=== PATIENT | female | born 1970 | race African-American/Black ===

== ENCOUNTER 2021-06-04 09:47 | Outpatient (REF) | payer MEDICAID, SELFPAY ==
--- NOTE | ~2021-06-04 | XR_ITS ---
EXAMINATION: XR HAND, RIGHT CLINICAL INFORMATION: Pain COMPARISON: None TECHNIQUE: PA, lateral, and oblique views of the right hand. FINDINGS: Bone alignment is normal. No fracture or dislocation is seen. The joint spaces are normal. There is soft tissue swelling adjacent to the radial side of the DIP joint of the fifth finger. XR/XR hand RT min 3V IMPRESSION: Soft tissue swelling adjacent to the radial side of the DIP joint of the fifth finger.
== END 2021-06-04 09:48 | disposition home or self-care (01) ==
LOC: HO.HOSX 09:47
PROVIDERS: PCP Internal Medicine; Visit Provider Orthopaedic Surgery
DX: M79.641 Pain in right hand (principal); M79.89 Other specified soft tissue disorders
CPT/HCPCS: 73130; 99202

== ENCOUNTER 2021-06-04 10:55 | Outpatient (REF) | payer MEDICAID, SELFPAY ==
[2021-06-04 12:33] LABS: Alanine Aminotransferase 19 U/L (0-31); Albumin Level 4.4 g/dL (3.5-5.0); Alkaline Phosphatase 66 U/L (39-117); Anion Gap 10 (12-20); Aspartate Amino Transferase 20 U/L (5-31); Bilirubin Total 0.6 mg/dL (0.0-1.0); Blood Urea Nitrogen 10 mg/dL (9-16); Calcium 9.7 mg/dL (8.4-10.2); Carbon Dioxide 26 mmol/L (22-29); Chloride 107 mmol/L (96-108); Cholesterol 206 mg/dL; Estimated Glomerular Filt Rate > 60; Glucose Random 90 mg/dL (60-115); HDL Cholesterol 66 mg/dL; LDL Cholesterol Calculated 128 mg/dl; Potassium 3.8 mmol/L (3.3-5.1); Sodium 139 mmol/L (135-145); Total Protein 7.3 g/dL (6.5-8.0); Triglycerides 61 mg/dL
[2021-06-04 12:56] LABS: Thyroid Stimulating Hormone 1.04 uIU/mL (0.32-4.0)
[2021-06-04 13:03] LABS: Creatinine Urine 48.41 mg/dL; Total Protein Urine Random < 7 mg/dL (<12)
== END 2021-06-04 10:56 | disposition home or self-care (01) ==
LOC: HO.LAB 10:55
PROVIDERS: PCP Internal Medicine; Visit Provider Internal Medicine
DX: Z00.01 Encounter for general adult medical examination with abnormal findings (principal); F31.81 Bipolar II disorder; I10 Essential (primary) hypertension; R22.31 Localized swelling, mass and lump, right upper limb
CPT/HCPCS: 36415; 80053; 80061; 84156; 84443

== ENCOUNTER 2021-06-24 06:48 | Day surgery (SDC) | payer MEDICAID, SELFPAY ==
[2021-06-18 14:45] VITALS: BMI 26.9
--- NOTE | 2021-06-23 10:33 | HO.ANESPROP2 ---
Documented by User: Maru Cooper NP 06/23/21 10:34 HPI - Anesthesia Eval Consult details Narrative: 51yo F for Upper Endoscopy and Colonoscopy PMFSH Active Problems Active Problems: All Active Problems (Updated 06/18/21 @ 14:44 by Tiffanie Perrin RN) Mass of soft tissue of right upper extremity (Acute) Past Medical History Medical History Anemia Anxiety Depressed Heartburn High blood pressure Hx of migraine headaches Surgical History Surgical History (Updated 06/24/21 @ 08:53 by Sophia Mckee MD) H/O dilation and curettage H/O wisdom tooth extraction Social History Social History Patient Tobacco Use Status: Current everyday Tobacco user Tobacco use type: Cigarette Cigarettes Per Day: 6 Use of substances other than those prescribed or required for medical reasons: No Are you DNR?: No Advance Directives: No Advance Directives Information Provided: Yes Recently lost weight without trying: No Nutrition Risks: No Nutritional Risk Current occupational status: unemployed Current occupation: rt hand Meds Allergies Allergy/AdvReac Type Severity Reaction Status Date / Time No Known Allergies Allergy Verified 06/04/21 09:55 Home Medications Medication Instructions Recorded Confirmed Last Taken Type amitriptyline 25 mg tablet 25 mg PO BEDTIME 06/04/21 06/18/21 Unknown History amlodipine 10 mg tablet 10 mg PO DAILY 06/04/21 06/18/21 06/24/21 History lisinopril 20 2 tab PO DAILY 06/04/21 06/24/21 06/24/21 History mg-hydrochlorothiazide 25 mg tablet naproxen sodium 550 mg tablet 550 mg PO BID PRN 06/04/21 06/18/21 Unknown History quetiapine 100 mg tablet 100 mg PO BEDTIME 06/04/21 06/18/21 Unknown History topiramate 50 mg tablet 50 mg PO BID 06/04/21 06/18/21 Unknown History Exam Exam Date and Time: June 23, 2021 1033 Height,Weight and Vital Signs: Height 5 ft Weight 62.596 kg Pertinent Lab Results Pertinent Lab Results: Laboratory Tests 06/04/21 11:07 Sodium 139 Potassium 3.8 Chloride 107 Carbon Dioxide 26 BUN 10 Creatinine 0.66 Assessment and Plan Assessment Anesthesia Assessment: Chart Reviewed Documented by User: Sophia Mckee MD 06/24/21 08:56 PMFSH Active Problems Active Problems: All Active Problems (Updated 06/18/21 @ 14:44 by Tiffanie Perrin RN) Mass of soft tissue of right upper extremity (Acute) Smoker.Last cigarette this morning BP diastolic high Past Medical History Medical History Anemia Anxiety Depressed Heartburn High blood pressure Hx of migraine headaches Family History Family history of problems with anesthesia: No Surgical History Surgical History (Updated 06/24/21 @ 08:53 by Sophia Mckee MD) H/O dilation and curettage H/O wisdom tooth extraction History of Problems with Anesthesia: No Social History Social History Patient Tobacco Use Status: Current everyday Tobacco user Tobacco use type: Cigarette Cigarettes Per Day: 6 Use of substances other than those prescribed or required for medical reasons: No Are you DNR?: No Advance Directives: No Advance Directives Information Provided: Yes Recently lost weight without trying: No Nutrition Risks: No Nutritional Risk Current occupational status: unemployed Current occupation: rt hand Meds Allergies Allergy/AdvReac Type Severity Reaction Status Date / Time No Known Allergies Allergy Verified 06/04/21 09:55 Home Medications Medication Instructions Recorded Confirmed Last Taken Type amitriptyline 25 mg tablet 25 mg PO BEDTIME 06/04/21 06/18/21 Unknown History amlodipine 10 mg tablet 10 mg PO DAILY 06/04/21 06/18/21 06/24/21 History lisinopril 20 2 tab PO DAILY 06/04/21 06/24/21 06/24/21 History mg-hydrochlorothiazide 25 mg tablet naproxen sodium 550 mg tablet 550 mg PO BID PRN 06/04/21 06/18/21 Unknown History quetiapine 100 mg tablet 100 mg PO BEDTIME 06/04/21 06/18/21 Unknown History topiramate 50 mg tablet 50 mg PO BID 06/04/21 06/18/21 Unknown History Exam Height,Weight and Vital Signs: Height 5 ft Weight 62.596 kg Vital Signs Temp Pulse Resp BP Pulse Ox 06/24/21 08:08 62 16 153/83 H 06/24/21 07:40 61 16 182/101 H 06/24/21 07:23 61 16 167/108 H 06/24/21 07:20 65 16 167/100 H 06/24/21 07:08 97.4 F 72 16 171/115 H 98 Airway Mallampati Class: III TM Dist: >3cm Neck ROM: Full Loose/Missing/Broken Teeth: Yes (Extraction ) Heart: RRR Lungs: CTAB Assessment and Plan Assessment Anesthesia Assessment: Anesthesia Plan Discussed Final Anesthetic Review Family History of Problems with Anesthesia: No History of Problems with Anesthesia: No NPO: Yes ASA Class: III Final Preanesthetic Review: No Changes in Pt Med Stat, Meds/Allgs Chart Reviewed, Consent Obtained/Reviewed and Anes Risks/Benef Reviewed Patient Risk: Intermediate Procedure Risk: Low Assessment/Block/Sedation in SS: Assess/Block/Sedation-SS Anesthetic Plan Anesthetic Plan: MAC: Disposition: Standard PACU
[2021-06-24] VITALS (7 sets, daily range): BP systolic 133–182; BP diastolic 83–115; PULSE 61–79; RESP 16–19; TEMP 36.3–36.7; O2SAT 98–100; BMI 26.5
[2021-06-24] MEDS: Lactated Ringers 1,000 ML 100 ML IVCONT (07:21)
--- NOTE | 2021-06-24 07:32 | PC.NURSE ---
PATIENT STATES HER BLOOD PRESSURE HAS BEEN GOING UP AND HER MD UPPED HER BP MED TO TWO TABLETS DAILY LISINOPRIL/HCTZ WITHIN THE LAST COUPLE MONTHS. DENIES ANY SYMPTOMS.
--- NOTE | 2021-06-24 07:52 | PC.NURSE ---
MD RESENDIZ AWARE OF PATIENTS ASYMPTOMATIC HTN.
--- NOTE | 2021-06-24 08:13 | MHC.SHP ---
Pre-Procedural Eval Section A Date of Service: 06/24/21 Section B Chief Complaint: anemia,reflux disease Details of Present Illness: SEe H&P no changes Relevant Family History (Specify if Yes): No Relevant Social History: None Present Medications: see Short Stay Collaborative assessment Medical History: No relevant PMH History of Previous Operations: No relevant previous surgery Allergies: Allergies Allergy/AdvReac Type Severity Reaction Status Date / Time No Known Allergies Allergy Verified 06/04/21 09:55 Review of Systems Sugical H&P ROS: Negative: Constitution, Cardiovascular, Respiratory, Neurological, Psychiatric, Hem-Onc, Allergic/Immunologic, Gastrointestinal, Genitourinary, Musculoskeletal, Integumentary, Endocrine and Eyes/Ears/Nose/Throat Exam Surgical H&P Exam: Normal: HEENT, Normal: Heart, Normal: Lungs, Normal: Extremities, Normal: Abdomen, Normal: Skin and Normal: Neurological Plan Diagnosis/Plan: Unchanged I have reviewed the history and physical and performed a pertinent physical examination on my patient. No changes have occurred unless specified.
--- NOTE | 2021-06-24 09:03 | P.BOP_ITS ---
Brief Operative Note Date of Service: 06/24/21 Pre-op diagnosis: tiera,gerd,screening Post-op diagnosis: same (erosive gastriits, colon polyp) Procedure: egd, colon Surgeon: Shaun Nguyen Anesthesia: MAC Was an Match Maker used for this Procedure?: No Estimated blood loss (mL): 5 Pathology: other (see req) Condition: stable Disposition: PACU
--- NOTE | 2021-06-24 10:59 | OP_ITS ---
SURGEON: Shanu Nguyen MD INDICATIONS: 1. Iron deficiency anemia. 2. Gastroesophageal reflux disease. 3. Colon cancer screening. PREOPERATIVE DIAGNOSIS: POSTOPERATIVE DIAGNOSIS: PROCEDURE PERFORMED: 1. Upper endoscopy with biopsy. 2. Colonoscopy to the terminal ileum with biopsy. ESTIMATED BLOOD LOSS: COMPLICATIONS: ANESTHESIA: ASSISTANTS: SPECIMENS: MEDICATIONS: Monitored anesthesia care. DESCRIPTION OF PROCEDURE: History and physical were performed. The risks and benefits of the procedure were explained to the patient. Informed consent was obtained. The patient was placed in the left lateral decubitus position. A digital rectal exam was performed prior to the colonoscopy. The Olympus video gastroscope was introduced into the esophagus, stomach, and duodenum. Examination was performed. The scope was removed. She was repositioned for colonoscopy. Digital rectal exam was performed and was found to be normal. The Olympus pediatric video colonoscope was introduced into the rectum and advanced to the cecum without difficulty. The cecum was identified by transillumination, palpation, and identification of ileocecal valve. Examination was performed. The scope was removed. She tolerated both procedures well and was returned to recovery area in stable condition. FINDINGS: UPPER ENDOSCOPY: Esophagus: The esophagus was normal. There was a slight irregularity to the EG junction and biopsies were obtained. Stomach: The stomach showed no evidence of masses or polyps. There was a single antral erosion measuring approximately 10 mm, which was biopsied. Duodenum: The bulb and second portion were normal. Random duodenal biopsies were obtained. COLONOSCOPY: The terminal ileum was examined and appeared normal. The visualized colonic mucosa was within normal limits without evidence of masses or ulcers. In the rectum at about 20 cm was a less than 5 mm polyp, which was removed with biopsy forceps. The quality of prep was good. Retroflexed examination showed some small internal hemorrhoids. IMPRESSION: 1. Erosive gastritis. 2. Colon polyp. RECOMMENDATION: Follow up the biopsy results. MD LAUREN Brantley/ADAL / [id number]
== END 2021-06-24 09:49 | disposition home or self-care (01) ==
PROVIDERS: PCP Internal Medicine; Visit Provider Internal Medicine Gastroenterology
PROC: (CPT 45380; principal; 2021-06-24 08:10)
DX: Z12.11 Encounter for screening for malignant neoplasm of colon (principal); K63.5 Polyp of colon; D50.9 Iron deficiency anemia, unspecified; K21.9 Gastro-esophageal reflux disease without esophagitis; K29.50 Unspecified chronic gastritis without bleeding; B96.81 Helicobacter pylori [H. pylori] as the cause of diseases classified elsewhere; I10 Essential (primary) hypertension; G43.909 Migraine, unspecified, not intractable, without status migrainosus; F41.8 Other specified anxiety disorders; Z79.899 Other long term (current) drug therapy; F17.210 Nicotine dependence, cigarettes, uncomplicated
CPT/HCPCS: 45380; 43239; 88305; 88342

== ENCOUNTER 2024-04-19 09:52 | Outpatient (AMB) | payer MEDICAID, SELFPAY ==
--- NOTE | 2024-04-19 09:58 | MHC.OFFVIS ---
Vital Signs 04/19/24 10:07 Height 5 ft 0.05 in Weight 135 lb BMI 26.3 Intake Visit Reasons: OV-Right small finger soft tissue mass Intake Note: Mindy 54 yr old - hand dominant female presents today for a follow up visit for her Right small finger soft tissue mass. Patient was last seen with Dr Middleton on 06/04/2021 where she was going to be schedule to have mass removed however states she never received a call back to schedule surgery. Currently states her mass has increased in size and would like to have it surgically removed. Denies CTS or any locking of finger. Allergies No Known Allergies Allergy (Verified 04/19/24 10:06) HPI HPI OV-Right small finger soft tissue mass: Details: Mindy is a 54 year old right hand dominant woman who is currently not working, returning to discuss her right small finger mass. This has been present for ~4 years now, and has increased in size. She denies any pain She is unemployed and stays at home. She says she was supposed to have this removed surgically in 2021, but never received a call to schedule her surgery. She would like to have this removed. [facility] Medical History (Updated 04/19/24 @ 10:20 by Fidel Bains) Heartburn Anemia Anxiety Depressed Hx of migraine headaches High blood pressure Surgical History H/O wisdom tooth extraction H/O dilation and curettage Social History Patient Tobacco Use Status: Current everyday Tobacco user Tobacco use type: Cigarette Cigarettes Per Day: 6 Current occupational status: unemployed Current occupation: rt hand Review of Systems Const All systems reviewed & are unremarkable except as noted in HPI and below Physical Exam Vital Signs: BMI result Body Mass Index 26.3 Const General: no acute distress and alert Orientation/consciousness: patient oriented x3 Neuro General: patient oriented x3 Extrem Other: Evaluation of right Upper Extremity: The patient was alert oriented and in no acute distress Neuro: Median, Ulnar, Radial nerves motor and sensory intact Vascular: Cap refill brisk ROM: She can make a fist and extend all her digits No locking or catching She has two masses on her small finger. One on the volar radial side, which is multi-lobular & measuring ~1cm diameter, dorsally it extends to the extensor tendon at the distal phalanx level The second is on the volar ulnar side, just proximal to the DIP flexion crease They may be contiguous. It is soft and not tender. Full range of motion of the digit. Psych Appearance: grossly normal Affect: normal affect Attitude: cooperative Assessment & Plan Assessment & Plan (1) Mass of soft tissue of right upper extremity: Comment: SF Code(s): M79.89 - Other specified soft tissue disorders Category: Medical Plan Assessment & Plan: 1. Right small finger, soft tissue masses Volar radial side, multi-lobular, measuring ~1cm diameter, dorsally it extends to the extensor tendon at the distal phalanx level Volar ulnar side, just proximal to the DIP flexion crease I educated her about this condition I discussed operative and non-operative treatment options The patient would like to proceed with surgery The risks and benefits of operative treatment were discussed with the patient and the patient wishes to proceed with surgery. These risks include, but are not limited to risk of damage to blood vessels, nerves, tendons, infection, recurrence, incomplete relief of preoperative symptoms, persistent pain, possible need for further surgery and the risks associated with regional blocks and anesthesia. The plan is to take the patient to the operating room sometime in the next few weeks for the following procedures: 1. Right small finger soft tissue mass excision, under general All of the preoperative paperwork including the consent was reviewed today. All the patient's questions were answered. The patient understands that they will be contacted by our scheduler soon to schedule this procedure She denies Diabetes, blood thinners, heart, lung, kidney issues She has asthma, and says this is well-controlled Scribed for Shayy Middleton MD by Fidel Bains medical language specialist, on 04/19/24 at 10:15 AM, EST. Coding Level of Care Code Est Pt Level 4 (30288) Diagnoses Mass of soft tissue of right upper extremity M79.89
[2024-04-19 10:07] VITALS: BMI 26.3
--- OUTSIDE RECORDS SUMMARY | 2024-04-19 11:42 | XMS_ITS | Encounter Summary ---
Author Organization [facility] Address [address] [place] [phone] Phone Care Team Providers Care Painter Ski Edge Name Role Phone Tara Narvaez MD Primary Care Provider [phone] Encounter Details Date Type Department Care Team (Late st Contact Info) Description 03/23/2024 10:40 AM EST Office Visit [facility] [address] [address] Simon White MD [facility] [address] [address] Hypertension (Primary Dx); 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 Social History Tobacco Use Types Packs/Day Years Used Date Smoking Tobacco: Every Day Cigarettes Smokeless Tobacco: Never Alcohol Use Standard Drinks/Week Comments Never 0 (1 standard drink = 0.6 oz pur e alcohol) Comments Unknown Sex and Gender Information Value Date Recorded Sex Assigned at Not on file Legal Sex Female 9:56 AM EDT Gender Identity Not on file Sexual Orientation Not on file documented as of this encounter Last Filed Vital Signs Vital Sign Reading Time Taken Comments Blood Pressure 212/133 03/23/2024 10:41 AM EST Pulse 100 03/23/2024 10:41 AM EST Temperature - - Respiratory Rate - - Oxygen Saturation 98% 03/23/2024 10:41 AM EST Inhaled Oxygen Concentration - - Weight 68.6 kg (151 lb 3.2 oz) 03/23/2024 10:41 AM EST Height 152.4 cm (5') 03/23/2024 10:41 AM EST Body Mass Index 29.53 03/23/2024 10:41 AM EST documented in this encounter Patient Instructions * Patient Instructions* Simon White MD - 03/23/2024 10:40 AM EST You have Hypertension which is also called High Blood Pressure. One of the biggest things that you can do to live a longer healthier life and prevent cardiovascular disease, blindness, stoke and further damage to your kidneys is to control your blood pressure. If you are serious about controlling your blood pressure, then you should have a home machine. Thisshould be a digital machine with the correctly sized cuff that goes on your upper arm. Wrist machines are not as accurate. Bringing your machine into the doctors office at least once a year to have it checked is also a good idea. When your provider gives you a target blood pressure to aim for, they are referring to your AVERAGEBLOOD PRESSURE OVER TIME. This means that isolated readings are not as important as the trends and the zone where your BP runs most of the time. You should be recording your readings and bringing them in to every provider visit for review. If you do not know how to do an average, your provider will do it for you. This also means that you should not rely on a few readings a year at the doctors office. Two readings a year at the doctors office is not nearly as good of a test as a once a week reading for a year would be. Medications are vital for good blood pressure control and many medications can affect your blood pressure. Even herbs and over the counter pills. You should know any and all medications that you takeand have a meticulously kept list of medications with your at every provider encounter. Discuss your medication list, written BP records and BP targets with your provider at every office visit. Many other things in the environment can affect your blood pressure. To help you more effectively manage your high blood pressure, we would like to remind you of the following preventive measures you can take at home: 1) Eat right: Your diet should be rich in fruits, vegetables, potassium, and low-fat dairy products. You should also reduce your intake of fats, particularly saturated fats like fried foods, butter and oils. Sweets, and starches should also be limited. The best diets to follow would be a DASH diet and/or a Mediterranean diet. You can learn more about these at the following websites. DASH DIET: https://www.nhlbi.nih.gov/health-topics/qzuo-xcjtlc-utqu Https://dashdiet.org MEDITERRANEAN DIET: https://www.mayoinic.org/healthy-lifestyle/wypqfcnwv-eve-wjvanei-eating/in-dep th/mediterranean-diet/art-04914222 https://www.[employer].com/diet/a-z/yvv-bompdcriaouan-ybkh 2) Keep your sodium intake down: In addition to eating the right foods, you should try to keep yoursodium intake down. Excessive sodium (salt) intake leads directly to elevated Blood Pressure and insome cases swelling of the ankles. 2000 mg of sodium or less per day is the recommended target. Thesalt shaker is only 1/3 or the lobo. There is sodium in many foods. Especially preserved, processed, canned or packaged foods. You should read the labels to find out how much sodium you are ingesting. Eating fresh whole foods like the DASH diet helps to keep your salt intake down as well. 3) Maintain a healthy weight: Try to achieve and maintain a healthy weight. For every 10 lbs of weight that you loose, your BP usually goes down about 5-7mmgh. In addition to that, being overweight increases your cardiovascular risk and is associated with sleep apnea and other health problems. If you are unable to loose or maintain your weight, consider working with a ad operations intern, a licensed physical therapist or a bariatric weight clinic. 4) Exercise: Try to get at least 30 minutes of aerobic exercise every day. 60 minutes would be evenbetter. Formal programs help to motivate you. Consider joining an exercise class 5) Moderate your alcohol consumption: Alcohol makes it very difficult for our bodies to loose weight and it would be best if you abstained. However if you choose to drink, limit your alcohol intake to one drink per day. (I.e. one 4 oz glass of wine) 6) Moderate your caffeine intake: 1-2 eight ounce cups of regular coffee or its caffeinated equivalent per day is probably good for our hearts. However in doses more that that, the caffeine will raise your heart rate and blood pressure. Stay away form monster drinks, 5 hour energy, double espressos, etc 7) Be careful what medications you take: Many over the counter medications and herbs and supplements can raise your blood pressure. The most common are ibuprofen and decongestants. Many herbs can raise your blood pressure. Performance enhancing exercise supplements and weight loss supplements are no torious for containing substances that raise your blood pressure. Some [place]ine[place] teas and licorice candies can raise your blood pressure. In general you do not need supplements but if you choose to take them, know what you are using and get them form a reputable source. 8. Do not smoke, chew tobacco or vape: These can all raise your blood pressure and also increase the damage to your heart and blood vessels. Did you know that smoking can cause worsening kidney function? 9. Control stress and anxiety: Stress and anxiety can increase your blood pressure but they are difficult to measure. Exercise, hobbies, fun personal outlets, support groups, someone to talk to, yogaand relaxation techniques like deep breathing are all good ways to fight stress. If you are struggling with stress, consider talking with a formal therapist and discuss with your provider whether anti anxiety medications would be right for you. documented in this encounter Progress Notes * Simon White MD - 03/23/2024 10:40 AM EST [facility] Office Visit Patient Name: Mindy Emery, Female Date of : 1970, 54 y.o. Date: 03/23/2024 History of Present Illness Mindy Emery is a 54 y.o. female who is referred here for HTN----again.. She was seen in 2021 and never followed through on the recommendations. Is now referred back 3 years later for htn. Here was the 2021 HPI: She is seen with her sister who also has htn and also has a white coat effect. They both seem anxious. She tells me she has had htn for 7 years and was on one med . She could not tell me which one. IN 11/2020 she was seen in the ER at [facility] for leg pains and had a bp 220/114. She had follow up and over the last year her she is now on 3 meds noteably amlodipine , lisinopril and hctz. She has also had topamnax started the last year for chronic migraine headaches. She does not monitor bp at home but thinks it is better there / In the pcp nick she has had persistent bp readings 135-160/90-100. The MA intake today was 140/100. She claims adherence to meds today. When I took it a few minutes later she was 190/130 in both arms and visibly anxious. She denies cp, sob, long, palpitations, dizzyness n,t,p,w or other vascular sxs. She has good pulses in her feet. No edema and looks somewhatdry. Since then it appears she did not follow up with pcp either. In 02/2024 she saw PC who noted that she had ran out of all meds and had not been seen in 2 years. Comes in today with poor insight, no medlist and questionable adherence. No physical complains. Multiple computer flags indicate many of the bp rx'd have A completed history and physical was performed. The new patient packet from the referring provider was reviewed with the patient. Available medication list and home monitoring data were reviewed. Any available data, labs and images were reviewed. The [facility]'s electronic records were opened and reviewed for more background information. The 12 point review of symptoms was pertinently negative for fevers, weight loss, flank pain, hemoptysis, chest pain, hematuria, hematochezia, rash, synovitis and all other systems reviewed were negative The following portions of the patient's chart were reviewed in this encounter and updated as appropriate: Tobacco Allergies Meds Problems Med Hx Surg Hx Fam Hx Past Medical History Past Medical History: Diagnosis Date Anemia Asthma Depressive disorder Hypertension Migraine Past Surgical History Past Surgical History: Procedure Laterality Date CYST REMOVAL vulvar cyst removal 06/2016 TUBAL LIGATION Family History Family History Problem Relation Age of Onset Hypertension Mother Migraines Mother Heart disease Father Hyperlipidemia Father Social History Social History Tobacco Use Smoking status: Every Day Current packs/day: 0.50 Types: Cigarettes Smokeless tobacco: Never Substance Use Topics Alcohol use: Never Medication List Current Outpatient Medications Medication Sig Dispense Refill amLODIPine (NORVASC) 10 MG tablet Take 1 tablet by mouth 1 (one) time each day lisinopril-hydroCHLOROthiazide (PRINZIDE,ZESTORETIC) 20-25 MG per tablet Take 1 tablet by mouth 1 (one) time each day QUEtiapine (SEROquel) 50 MG tablet Take 1 tablet by mouth at bed time sertraline (ZOLOFT) 50 MG tablet Take 50 mg by mouth 1 (one) time each day No current facility-administered medications for this visit. Allergy List Allergies Allergen Reactions Wellbutrin [Bupropion] Physical Exam BP (!) 212/133 (BP Location: Left upper arm, Patient Position: Sitting) Pulse 100 Ht 5' (1.524 m) Wt 151 lb 3.2 oz (68.6 kg) SpO2 98% BMI 29.53 kg/m?? Last 3 office BP readings: BP Readings from Last 3 Encounters: 03/23/24 (!) 212/133 02/10/22 140/100 BP in both arms symmetrically with good leg pulses and no vascular findings General: Well developed well nourished in no acute distress Neuro: alert interactive without delirium Eyes: anicteric ENT: moist membranes, no stridor Cardiovascular: regular rate and rhythm, no rub Pulmonary: no distress or tachypnea Abdomen: soft and nondistended Genitourinary: no suprapubic tenderness or bladder distension to palpation Musculoskeletal: No bony tenderness or deviation Dermatologic: No visible rash on exposed skin Hematologic: no petechiae or ecchymoses on exposed skin Extremities: edema is none. Looks dry Labs No lab exists for component: LABALBU No lab exists for component: PTHINTACT No lab exists for component: IRON SATURATION No lab exists for component: CYCLOSPORITR Renal panel and lytes 11/2020 [facility] er were normal Assessment & Plan 1. Hypertension 2. 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 HYPOVOLEMIA DUE TO DUAL DIURETIC (HCTZ AND TOPAMAX) - TOPOMAX IS OFF NOW CHRONIC MIGRAINES CHART LISTS BIPOLAR DISEASE POOR INSIGHT AND POORLY KEMPT MEDICATION LIST NONADHERENCE - NO SHOWED FOR 2-3 YEARS WITH ME AND PCP AND NO MEDS FOR EXTENDED PERIODS SUGGESTIONS/PLAN: -clearly adherence would be the most helpful thing -will see if I can find out who her psychiatrist is and perhaps meds need to be adjusted to help compliance -24 hr bpm will be reordered but will not be helpful right now as she is initiating 3 drug antitn therapy just 48 hours ago -will set up follow up in 6-12 weeks for bp reeval -will draw some basic secondary HTN labs -after next visit will set up 24 hr bpm -htn handouts and education provided today Orders Placed This Encounter Renal Function Panel PTH, Intact CBC and Differential Uric Acid Urine Albumin / Creatinine Ratio Renin Activity Aldosterone Metanephrines,Frac., Pl. Free Cortisol TSH w/reflex to FT4 Return in about 3 months (around 06/21/2024) for OV with labs 1-2 weeks prior to visit. Simon White MD documented in this encounter Plan of Treatment Upcoming Encounters Date Type Department Care Team (Late st Contact Info) Description 05/17/2024 10:40 AM EDT Office Visit [facility] [address] [address] Simon White MD [address] [address] Scheduled Orders Name Type Priority Associated Diagnoses Orde r Schedule Renal Function Panel Lab Routine Hypertension 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 Expected: 03/23/2024, Expires: 04/21/2025 PTH, Intact Lab Routine Hypertension 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 Expected: 03/23/2024, Expires: 04/21/2025 CBC and Differential Lab Routine Hypertension 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 Expected: 03/23/2024, Expires: 04/21/2025 Uric Acid Lab Routine Hypertension 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 Expected: 03/23/2024, Expires: 04/21/2025 Urine Albumin / Creatinine Ratio Lab Routine Hypertension 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 Expected: 03/23/2024, Expires: 04/21/2025 Renin Activity Lab Routine Hypertension 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 Expected: 03/23/2024, Expires: 04/21/2025 Aldosterone Lab Routine Hypertension 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 Expected: 03/23/2024, Expires: 04/21/2025 Metanephrines,Frac., Pl. 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
--- OUTSIDE RECORDS SUMMARY | 2024-04-19 11:42 | XMS_ITS | Clinical Summary ---
Author Organization [facility] Address [address] [address] Phone Care Team Providers Care Radio Adjuster Name Role Phone Tara Narvaez MD Primary Care Provider [phone] Allergies Active Allergy Reactions Criticality Noted Date Comments Bupropion 02/09/2022 Medications amLODIPine (NORVASC) 10 MG tablet Take 1 tablet by mouth 1 (one) time each day Active QUEtiapine (SEROquel) 50 MG tablet Take 1 tablet by mouth at bed time Active lisinopril-hydro CHLOROthiazide (PRINZIDE,ZESTOR ETIC) 20-25 MG per tablet Take 1 tablet by mouth 1 (one) time each day Active sertraline (ZOLOFT) 50 MG tablet Take 50 mg by mouth 1 (one) time each day Active amitriptyline (ELAVIL) 25 MG tablet Take 1 tablet by mouth at bed time 03/23/19 25 Discontinu ed(Med List Maintenanc e) Topiramate ER 50 MG capsule sustained-releas e 24 hr Take 1 tablet by mouth 2 (two) times a day 03/23/19 25 Discontinu ed(Med List Maintenanc e) Omeprazole 20 MG Tablet Delayed Release Dispersible Take 20 mg by mouth 1 (one) time each day 2 03/23/19 25 Discontinu ed(Med List Maintenanc e) metoprolol succinate XL (Toprol XL) 25 MG 24 hr tablet Take 1 tablet (25 mg total) by mouth 1 (one) time each day Do not crush or chew. 30 tablet 11 2 03/23/19 25 Discontinu ed(Med List Maintenanc e) lisinopril (PRINIVIL,ZESTRI L) 30 MG tablet Take 1 tablet (30 mg total) by mouth 1 (one) time each day 30 tablet 11 2 03/23/19 25 Discontinu ed(Med List Maintenanc e) Active Problems Problem Noted Date Diagnosed Date Labile hypertension due to being in a clinical e nvironment 04/28/2022 Hypertension 02/10/2022 Encounters Date Type Department Care Team Description 03/23/2024 10:40 AM EST [facility] [address] [address] Simon White MD Hypertension (Primary Dx); 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 from Last 3 Months Family History Medical History Relation Comments Heart disease Father Hyperlipidemia Father Hypertension Mother Migraines Mother Relation Status Comments Father Mother Social History Tobacco Use Types Packs/Day Years Used Date Smoking Tobacco: Every Day Cigarettes Smokeless Tobacco: Never Tobacco Cessation:Ready to Q uit: Not Asked; Counseling Given: Not Answered Alcohol Use Standard Drinks/Week Comments Never 0 (1 standard drink = 0.6 oz pur e alcohol) Comments Unknown Sex and Gender Information Value Date Recorded Sex Assigned at Not on file Legal Sex Female 9:56 AM EDT Gender Identity Not on file Sexual Orientation Not on file Last Filed Vital Signs Vital Sign Reading [...] Mass Index 29.53 03/23/2024 10:41 AM EST Plan of Treatment Upcoming Encounters Date Type Department Care Team (Late st Contact Info) Description 05/17/2024 10:40 AM EDT [facility] [address] [phone] Simon White MD [address] [address] Health Maintenance Due Date Last Done Comments Breast Cancer Screening 1970 Pneumococcal Vaccine: Pediat rics (0 to 5 Years) and At-Risk Patients (6 to 64 Years) (1 of 2 - PCV) 02/29/1976 Hepatitis B Vaccine (1 of 3 - 19+ 3-dose series) 02/28 Colorectal Cancer Screening: Annual FOBT 2019 Colorectal Cancer Screening: Colonoscopy 2019 Colorectal Cancer Screening: Sigmoidoscopy 2019 Influenza Vaccine (#1) 2023 Insurance [place] Care Teams Radio Adjuster Relationship Specialty Start Date End Date Tara Narvaez MD [address] [place] [address] PCP - General Internal Medicine 11/13/21
== END 2024-04-19 10:24 | disposition home or self-care (01) ==
PROVIDERS: PCP Internal Medicine; Visit Provider Orthopaedic Surgery
DX: M79.89 Other specified soft tissue disorders (principal)
CPT/HCPCS: 99214

== ENCOUNTER → 2024-04-19 09:52 | Outpatient (BNVA) | payer MEDICAID, SELFPAY | PROVIDERS: PCP Internal Medicine; Visit Provider Orthopaedic Surgery | DX: M79.89 Other specified soft tissue disorders (principal) | CPT/HCPCS: 99212 ==

== ENCOUNTER 2024-06-28 10:40 | Outpatient (AMB) | payer MEDICAID, SELFPAY ==
[2024-06-28 11:12] VITALS: BMI 26.3
--- NOTE | 2024-06-28 11:12 | MHC.OFFVIS ---
Vital Signs 06/28/24 11:12 Height 5 ft 0.05 in Weight 135 lb BMI 26.3 Intake Visit Reasons: Pre-Rt SF Soft Tissue Mass Exc 07/03/24 Intake Note: Mindy 54 yr old female presents today for her pre-op visit for her right small finger tissue mass excision scheduled with Dr Middleton on 07/03/24. Consents signed and questions have been answered. Allergies No Known Allergies Allergy (Verified 06/28/24 11:25) HPI HPI Pre-Rt SF Soft Tissue Mass Exc 07/03/24: Details: Mindy is a 54 year old right hand dominant woman who is currently not working, returning to discuss her right small finger masses This has been present for ~4 years now, and has increased in size. She denies any pain She is unemployed and stays at home. [facility] Medical History (Updated 04/19/24 @ 10:20 by Fidel Bains) Heartburn Anemia Anxiety Depressed Hx of migraine headaches High blood pressure Surgical History H/O wisdom tooth extraction H/O dilation and curettage Social History Patient Tobacco Use Status: Current everyday Tobacco user Tobacco use type: Cigarette Cigarettes Per Day: 6 Current occupational status: unemployed Current occupation: rt hand Physical Exam Vital Signs: BMI result Body Mass Index 26.3 Const General: no acute distress and alert Orientation/consciousness: patient oriented x3 Neuro General: patient oriented x3 Extrem Other: Evaluation of right Upper Extremity: The patient was alert oriented and in no acute distress Neuro: Median, Ulnar, Radial nerves motor and sensory intact Vascular: Cap refill brisk ROM: She can make a fist and extend all her digits No locking or catching She has two masses on her small finger. One on the volar radial side, which is multi-lobular & measuring ~1.5cm*~1.5cm, with a height of 5-10mm, dorsally it extends to the extensor tendon at the distal phalanx level. the skin is rather thin over the central aspect of this fairly large mass. The second is on the volar ulnar side, just proximal to the DIP flexion crease, measuring ~5mm in diameter They may be contiguous. It is soft and not tender. Full range of motion of the digit. Psych Appearance: grossly normal Affect: normal affect Attitude: cooperative Assessment & Plan Assessment & Plan (1) Mass of soft tissue of right upper extremity: Comment: Code(s): M79.89 - Other specified soft tissue disorders Category: Medical Plan Assessment & Plan: 1. Right small finger, soft tissue masses Volar radial side, multi-lobular, measuring ~1.5cm*~1.5cm, with a height of 5-10mm, dorsally it extends to the extensor tendon at the distal phalanx level Volar ulnar side, just proximal to the DIP flexion crease, measuring ~5mm in diameter I educated her about this condition I discussed operative and non-operative treatment options The patient would like to proceed with surgery The risks and benefits of operative treatment were discussed with the patient and the patient wishes to proceed with surgery. These risks include, but are not limited to risk of damage to blood vessels, nerves, tendons, infection, recurrence, incomplete relief of preoperative symptoms, persistent pain, possible need for further surgery and the risks associated with regional blocks and anesthesia. The plan is to take the patient to the operating room sometime on 07/03/24 for the following procedures: 1. Right small finger soft tissue mass excision, under general All of the preoperative paperwork including the consent was reviewed today. All the patient's questions were answered. The patient understands that they will be contacted by our assistant professor of surgery soon to schedule this procedure She denies Diabetes, blood thinners, heart, lung, kidney issues She has asthma, and says this is well-controlled Scribed for Shayy Middleton MD by Fidel Bains medical records manager, on 06/28/24 at 11:35 AM, EST. Coding Level of Care Code Est Pt Level 4 (98557) Diagnoses Mass of soft tissue of right upper extremity M79.89
--- OUTSIDE RECORDS SUMMARY | 2024-06-28 11:56 | XMS_ITS | Clinical Summary ---
Author Organization [facility] Address [address] [address] Phone Care Team Providers Care Supervisor [employer] Name Role Phone Tara Narvaez MD Primary Care Provider [phone] Allergies Active Allergy Reactions Criticality Noted Date [...] mouth 1 (one) time each day Active Active Problems Problem Noted Date Diagnosed Date Labile hypertension due to being in a clinical e nvironment 04/28/2022 Hypertension 02/10/2022 Encounters Date Type Department Care Team Description 05/17/2024 Documentation Only [facility] [address] [address] Simon White MD No Show (No show-----again) from Last 3 Months Family History Medical [...] 03/23/2024 10:41 AM EST Plan of Treatment Health Maintenance Due Date Last Done Comments Breast Cancer Screening 1970 Hepatitis B Vaccine (1 of 3 - 19+ 3-dose series) 02/28 Pneumococcal Vaccine: 50+ Years (1 of 2 - PCV) 990 Colorectal Cancer Screening: Annual FOBT 2019 Colorectal Cancer Screening: Colonoscopy 2019 Colorectal Cancer Screening: Sigmoidoscopy 2019 Influenza Vaccine (Season Ended) 2024 Insurance Medicaid [place] Care Teams Supervisor [employer] Relationship Specialty Start Date End Date Tara Narvaez MD [address] [place] [address] PCP - General Internal Medicine 11/13/21
== END 2024-06-28 12:01 | disposition home or self-care (01) ==
LOC: HO.HOS 10:40
PROVIDERS: PCP Internal Medicine; Visit Provider Orthopaedic Surgery
DX: M79.89 Other specified soft tissue disorders (principal)
CPT/HCPCS: 99024

== ENCOUNTER → 2024-06-28 10:40 | Outpatient (BNVA) | payer MEDICAID, SELFPAY | PROVIDERS: PCP Internal Medicine; Visit Provider Orthopaedic Surgery ==

== ENCOUNTER 2024-07-03 06:54 | Day surgery (SDC) | payer MEDICAID, SELFPAY ==
[2024-06-29 14:38] VITALS: BMI 26.4
--- OUTSIDE RECORDS SUMMARY | 2024-06-30 13:36 | XMS_ITS | Clinical Summary ---
Author Organization [facility] Address [address] [address] Phone Care Team Providers Care Web Operations Administrator Name Role Phone Tara Narvaez MD Primary Care Provider [phone] Allergies Active Allergy Reactions Criticality Noted Date [...] Documentation Only [facility] [address] [address] Simon White MD No Show [...] Insurance Medicaid [place] Care Teams Web Operations Administrator Relationship Specialty Start Date End Date Tara Narvaez MD [address] [place] [address] PCP - General Internal Medicine 11/13/21
[2024-07-03] VITALS (8 sets, daily range): BP systolic 98–125; BP diastolic 53–85; PULSE 80–99; RESP 14–18; TEMP 36.2–36.6; O2SAT 92–100; BMI 26.3
[2024-07-03] MEDS: Lactated Ringers 1,000 ML 80 ML IVCONT (07:18)
--- NOTE | 2024-07-03 07:24 | P.CONAN_ITS ---
[facility] Active Problems Active Problems: All Active Problems Mass of soft tissue of right upper extremity (Acute) Past Medical History Medical History Heartburn Anemia Anxiety Depressed Hx of migraine headaches High blood pressure Family History Family history of problems with anesthesia: No Surgical History Surgical History History of esophagogastroduodenoscopy (EGD) (2021) Hx of colonoscopy (2021) H/O wisdom tooth extraction H/O dilation and curettage History of Problems with Anesthesia: No Social History Social History (Reviewed 06/28/24 @ 11:26 by Gladys Gonsalez [facility]) Are you a primary health care recruiter to a significant other at home: No Do you presently have visiting nurse or other home services: No Patient Tobacco Use Status: Current everyday Tobacco user Tobacco use type: Cigarette Cigarettes Per Day: 6 Smoked in Last 30 Days: Yes Patient Interested in Nicotine Replacement: No Substance Use Frequency: Daily Have you been hit, kicked, punched, or otherwise hurt by someone within the past year? If so, by whom?: No Are you DNR?: No Advance Directives: No Advance Directives Information Provided: Yes Poor oral hygiene: No Current occupational status: unemployed Current occupation: rt hand Meds Allergies Allergy/AdvReac Type Severity Reaction Status Date / Time No Known Allergies Allergy Verified 07/03/24 07:10 Active Medications: Current Medications Cefazolin Sodium/Dextrose (Ancef) 2 gm in 50 mls @ 100 mls/hr IV PREOP ONE Stop: 07/03/24 07:25 Lactated Ringer's (Lr) 1,000 mls @ 80 mls/hr IVCONT .[id number] THOMAS Last Admin: 07/03/24 07:18 Dose: 80 mls/hr Home Medications ?Medication ?Instructions ?Recorded ?Confirmed ?Last Taken ?Type amitriptyline 25 mg tablet 25 mg PO BEDTIME 06/04/21 07/03/24 Unknown History amlodipine 10 mg tablet 10 mg PO DAILY 06/04/21 07/03/24 06/24/21 History lisinopril 20 2 tab PO DAILY 06/04/21 07/03/24 07/03/24 History mg-hydrochlorothiazide 25 mg tablet quetiapine 100 mg tablet 100 mg PO BEDTIME 06/04/21 07/03/24 Unknown History topiramate 50 mg tablet 50 mg PO BID 06/04/21 07/03/24 Unknown History Exam Height,Weight and Vital Signs: Height 5 ft Weight 61.008 kg Last Vital Signs Temp 97.9 F 07/03/24 07:16 Pulse 89 07/03/24 07:16 Resp 18 07/03/24 07:16 BP 125/85 07/03/24 07:16 Pulse Ox 100 07/03/24 07:16 O2 Del Method Room Air 07/03/24 07:16 Airway Mallampati Class: III TM Dist: >3cm Neck ROM: Full Heart: rrr Lungs: cta Assessment and Plan Assessment Anesthesia Assessment: Anesthesia Plan Discussed and Chart Reviewed Final Anesthetic Review Family History of Problems with Anesthesia: No History of Problems with Anesthesia: No NPO: Yes ASA Class: II Final Preanesthetic Review: No Changes in Pt Med Stat, Meds/Allgs Chart Reviewed and Consent Obtained/Reviewed Patient Risk: Low Procedure Risk: Low Anesthetic Plan Anesthetic Plan: GA Disposition: Standard PACU
--- NOTE | 2024-07-03 08:53 | MHC.SHP ---
Pre-Procedural Eval Section A - 24 Hr Update-Section A only Date of Service: 07/03/24 The patient is an INPATIENT: No Changes since office visit: No Cold of Flu in the past 2 weeks, No New Medical Problems, No Changes in Medication and No Patient answered all questions The patient has been examined within 24 hours of the surgical procedure. The History & Physical has been completed within 30 days and I have reviewed it.: Yes Section B - Complete if H&P > 30 days Chief Complaint: o rt sf mass Allergies: Allergies Allergy/AdvReac Type Severity Reaction Status Date / Time No Known Allergies Allergy Verified 07/03/24 07:10 Plan I have reviewed the history and physical and performed a pertinent physical examination on my patient. No changes have occurred unless specified. Time Spent With Patient Time: Total time managing care of this patient today ____ minutes.
--- NOTE | 2024-07-03 08:53 | W.PM.OPN ---
Operative Note Operative Note Date of Service: 07/03/24 Narrative: Operative Note Narrative: Preop diagnosis: 1. Right small finger soft tissue mass Postop diagnosis: Same Procedure: 1. Right small finger soft tissue mass excisional biopsy, deep 2. Ulnar nerve block Surgeon: Shayy Middleton MD Early Childhood Education Coordinator: None Anesthesia: General Anesthesia Findings: Banuelos solid multi lobular soft tissue mass Implants: None Tourniquet time: 20 minutes EBL: 5.0 ml Specimen: Right small finger mass sent for histopathology Drains: None Complications: None Disposition: Brought to the recovery room in stable condition Plan: Follow-up in 10-14 days for wound check, suture removal and to check pathology Indications: The patient is a 54 year old woman with right small finger soft tissue mass . The risks and benefits of operative treatment, including but not limited to risk of damage to blood vessels, nerves, tendons, infection, recurrence, persistent pain or numbness, incomplete resolution of preoperative symptoms, or need for further surgery were discussed with the patient and they wished to proceed with surgery. Procedure: Once consent was obtained patient was brought back to the operating suite and placed in the operating table in a supine position. . Perioperative antibiotics and anesthesia was administered by the anesthesia team. A tourniquet was applied to the proximal aspect of the right upper extremity and the limb was prepped and draped in a standard surgical fashion. The limb was elevated exsanguinated with Esmarch bandage and the tourniquet inflated to 250 mm of mercury for a total tourniquet time of 20 minutes. I made an oblique incision over the volar aspect of the middle phalanx, and I made a longitudinally oriented but gently curved incision essentially over the radial midlateral aspect of the distal phalanx curving onto the pad. These incisions were made with a 15. Blade through the skin to the subcutaneous tissues. I then dissected down to the level of the soft tissue mass. The mass is multi lobular banuelos and appears to be coming from the radial aspect of the D IP joint beneath the FDP tendon. Proximally there was a spherical lobule that was also attached more distally. I dissected this free from the surrounding tissues. This did not appear to involve the ulnar neurovascular bundle, and it was approximated to the flexor tendon sheath volarly. The more distal aspect ranged from the volar pad around the radial aspect of the distal phalanx to the dorsal aspect of the distal phalanx. Through this distal incision I was able to dissect about the banuelos lobular soft tissue mass. There did appear to be at least 1 branch of the radial digital nerve passing across and invaginating the mass. I carefully dissected it free from the mass in an effort to protect it. Again the mass appeared to be coming from the radial aspect of the D IP joint and beneath the FDP tendon. The mass was mobilized free from the tendon sheath and the joint and the surrounding structures and was removed from the patient and placed on the back table to be sent for histopathology. At this point the tourniquet was deflated and hemostasis obtained with a brief period of local pressure The wound was copiously irrigated with normal saline. The skin edges were reapproximated with 5-0 nylon suture. An ulnar nerve block was performed by infiltrating about the ulnar nerve at the wrist with some 1% lidocaine with epinephrine for postop pain control, and a sterile dressing was applied. [ splint ] The patient appears to have tolerated the procedure well and with no complications. All digits were well vascularized conclusion of the case.
[2024-07-03] MEDS: ceFAZolin Sodium/Dextrose,Iso 2 GM/50 ML PIGGYBACK IV (09:15)
== END 2024-07-03 11:50 | disposition home or self-care (01) ==
PROVIDERS: PCP Internal Medicine; Visit Provider Orthopaedic Surgery
PROC: (CPT 26111; principal; 2024-07-03 08:40)
DX: M79.89 Other specified soft tissue disorders (principal); D64.9 Anemia, unspecified; I10 Essential (primary) hypertension; R12 Heartburn; Z79.899 Other long term (current) drug therapy; F17.210 Nicotine dependence, cigarettes, uncomplicated; Z56.0 Unemployment, unspecified
CPT/HCPCS: 26111; 88304; 88307; J0690; J1100; J2003; J2004; J2250; J2405; J2704; J2795; J3010

== ENCOUNTER → 2024-07-03 06:54 | Outpatient (BNV) | payer MEDICAID, SELFPAY | PROVIDERS: PCP Internal Medicine; Visit Provider Orthopaedic Surgery | DX: R22.31 Localized swelling, mass and lump, right upper limb (principal) | CPT/HCPCS: 26116 ==

== ENCOUNTER 2024-07-18 10:49 | Outpatient (AMB) | payer MEDICAID, SELFPAY ==
--- NOTE | 2024-07-18 10:57 | A.OFFVIS_ITS ---
Vital Signs 07/18/24 11:02 Height 5 ft Handedness Right Intake Visit Reasons: PO-Rt SF Soft Tissue Mass Exc 07/03/24 Intake Note: Mindy is a 54 year old right hand dominant female who presents today post operatively status post right small finger soft tissue mass excisional biopsy DOS: 07/03/[address] Shayy Middleton. Patient reports she has not been using her right hand however if she accidentally bumps her hand against something she gets pain and discomfort. Expresses at first she felt some numbness but thinks this has resolved. Allergies No Known Allergies Allergy (Verified 07/18/24 11:03) HPI HPI PO-Rt SF Soft Tissue Mass Exc 07/03/24: Details: Mindy is a 54 year old right hand dominant female who presents today post operatively status post right small finger soft tissue mass excisional biopsy DOS: 07/03/[address] Shayy Middleton. Patient reports she has not been using her right hand however if she accidentally bumps her hand against something she gets pain and discomfort. Expresses at first she felt some numbness but thinks this has resolved in all areas except for the most distal aspect of the right small finger, where she reports some slightly diminished sensation. [facility] Medical History (Updated 07/18/24 @ 11:24 by NIDHI Castellanos) Heartburn Anemia Anxiety Depressed Hx of migraine headaches High blood pressure Surgical History History of esophagogastroduodenoscopy (EGD) (2021) Hx of colonoscopy (2021) H/O wisdom tooth extraction H/O dilation and curettage Social History Are you a primary nanny caregiver to a significant other at home: No Do you presently have visiting nurse or other home services: No Patient Tobacco Use Status: Current everyday Tobacco user Tobacco use type: Cigarette Cigarettes Per Day: 6 Current occupational status: unemployed Current occupation: rt hand Review of Systems Const All systems reviewed & are unremarkable except as noted in HPI and below Physical Exam Const General: no acute distress and alert Orientation/consciousness: patient oriented x3 Neuro General: patient oriented x3 Extrem Other: Evaluation of right Upper Extremity: The patient was alert oriented and in no acute distress Neuro: Median, Ulnar, Radial nerves motor and sensory intact Vascular: Cap refill brisk ROM: She is unable to make a closed fist with the small finger of the right hand No locking or catching Well approximated and well healing incision sites noted on the left small finger No erythema, discharge, evidence of infection Sutures removed, steroids applied Psych Appearance: grossly normal Affect: normal affect Attitude: cooperative Results Reviewed Results Reviewed: Diagnosis Soft tissue, right small finger mass, excision: Giant cell tumor of tendon sheath, localized type (see comment) COMMENT: The benign fibroblastic lesion also demonstrates abundant foamy histiocytes and necrosis Assessment & Plan Assessment & Plan (1) Mass of soft tissue of right upper extremity: Comment: Code(s): M79.89 - Other specified soft tissue disorders Category: Medical (2) Stiffness of finger joint of left hand: Code(s): M25.642 - Stiffness of left hand, not elsewhere classified Category: Medical Plan 1. Status post mass excision of left small finger DOS 07/03/2024 Patient appears to be recovering fairly well postoperatively Patient is educated about the typical recovery course Patient appears to have moderate stiffness of the left small finger, as she has left the operative dressing on since surgery and reports that she has not been moving the small finger much Due to this, patient is referred to occupational therapy for range of motion of the left small finger Patient is amenable to this plan Follow-up in 2 weeks for reassessment, sooner with any acute concerns Orders: Orders OT Evaluation and Treatment Today M25.642 - Stiffness of left hand, not elsewhere classified, M79.89 - Other specified soft tissue disorders Coding Level of Care Code Global (82782) Diagnoses Mass of soft tissue of right upper extremity M79.89 Stiffness of finger joint of left hand M25.642
--- OUTSIDE RECORDS SUMMARY | 2024-07-18 11:39 | XMS_ITS | Clinical Summary ---
Author Organization [facility] Address [address] [address] Phone Care Team Providers Care Acura Sales Consultant Name Role Phone Tara Narvaez MD Primary Care Provider [phone] Allergies Active Allergy Reactions Criticality Noted Date [...] Documentation Only [facility] [address] [address] Simon White MD No Show [...] Insurance Medicaid [place] Care Teams Acura Sales Consultant Relationship Specialty Start Date End Date Tara Narvaez MD [address] [place] [address] PCP - General Internal Medicine 11/13/21
== END 2024-07-18 11:45 | disposition home or self-care (01) ==
LOC: HO.HOS 10:49
PROVIDERS: PCP Internal Medicine
DX: M79.89 Other specified soft tissue disorders (principal); M25.642 Stiffness of left hand, not elsewhere classified
CPT/HCPCS: 99024

== ENCOUNTER → 2024-07-18 10:49 | Outpatient (BNVA) | payer MEDICAID, SELFPAY | PROVIDERS: PCP Internal Medicine | DX: M25.642 Stiffness of left hand, not elsewhere classified (principal); Z48.817 Encounter for surgical aftercare following surgery on the skin and subcutaneous tissue; Z98.890 Other specified postprocedural states | CPT/HCPCS: 99212 ==

== ENCOUNTER 2024-08-09 13:20 | Outpatient (AMB) | payer MEDICAID, SELFPAY ==
--- NOTE | 2024-08-09 13:35 | MHC.OFFVIS ---
Intake Visit Reasons: PO-Rt SF Soft Tissue Mass Exc 07/03/24 Intake Note: Mindy is a 54 year old right hand dominant female who presents today for a post operative visit and range of motion check status post right small finger soft tissue mass excisional biopsy DOS: 07/03/[address] Shayy Middleton. Patient report she has not contacted occupational therapy for a visit yet. She expresses mild discomfort if she bumps against the right small finger. Denies numbness and tingling. She is unable to make a full closed fist and says she is afraid to do so because she fears her incisions will open up or make her discomfort worse. Sanitation Manager Required: Yes Allergies No Known Allergies Allergy (Verified 08/09/24 13:38) HPI HPI PO-Rt SF Soft Tissue Mass Exc 07/03/24: Details: Mindy is a 54 year old right hand dominant female who presents today for a post operative visit and range of motion check status post right small finger soft tissue mass excisional biopsy DOS: 07/03/[address] Shayy Middleton. Patient report she has not contacted occupational therapy for a visit yet. She expresses mild discomfort if she bumps against the right small finger. Denies numbness and tingling. She is unable to make a full closed fist and says she is afraid to do so because she fears her incisions will open up or make her discomfort worse. [facility] Medical History (Updated 07/18/24 @ 11:24 by NIDHI Castellanos) Heartburn Anemia Anxiety Depressed Hx of migraine headaches High blood pressure Surgical History History of esophagogastroduodenoscopy (EGD) (2021) Hx of colonoscopy (2021) H/O wisdom tooth extraction H/O dilation and curettage Social History Are you a primary school childcare attendant to a significant other at home: No Do you presently have visiting nurse or other home services: No Patient Tobacco Use Status: Current everyday Tobacco user Tobacco use type: Cigarette Cigarettes Per Day: 6 Current occupational status: unemployed Current occupation: rt hand Review of Systems Const All systems reviewed & are unremarkable except as noted in HPI and below Physical Exam Const General: no acute distress and alert Orientation/consciousness: patient oriented x3 Neuro General: patient oriented x3 Extrem Other: Evaluation of right Upper Extremity: The patient was alert oriented and in no acute distress Neuro: Median, Ulnar, Radial nerves motor and sensory intact Vascular: Cap refill brisk ROM: She is unable to make a closed fist with the small finger of the right hand No locking or catching Well approximated and well healing incision sites noted on the left small finger No erythema, discharge, evidence of infection Sutures removed, steroids applied Significant dry skin noted over the incision site Psych Appearance: grossly normal Affect: normal affect Attitude: cooperative Assessment & Plan Assessment & Plan (1) Mass of soft tissue of right upper extremity: Comment: Code(s): M79.89 - Other specified soft tissue disorders Category: Medical (2) Stiffness of finger joint of left hand: Code(s): M25.642 - Stiffness of left hand, not elsewhere classified Category: Medical Plan 1. Status post mass excision of left small finger DOS 07/03/2024 Patient appears to be recovering fairly well postoperatively Patient is educated about the typical recovery course Patient appears to have improving stiffness of the left small finger, as she has left the operative dressing on since surgery and reports that she has not been moving the small finger much Dry skin and excess scabbing debrided in the office today Due to this, patient is referred to occupational therapy for range of motion of the left small finger Patient is amenable to this plan Follow-up as needed with any acute concerns Coding Level of Care Code Global (80159) Diagnoses Mass of soft tissue of right upper extremity M79.89 Stiffness of finger joint of left hand M25.642
--- OUTSIDE RECORDS SUMMARY | 2024-08-09 15:12 | XMS_ITS | Clinical Summary ---
Author Organization [facility] Address [address] [address] Phone Care Team Providers Care Apparel Stock Checker Name Role Phone Tara Narvaez MD Primary Care Provider [phone] Allergies Active Allergy Reactions Criticality Noted Date [...] Only [facility]. [address] [address] Simon White MD from Last 3 Months Family History Medical [...] Insurance Medicaid [place] Care Teams Apparel Stock Checker Relationship Specialty Start Date End Date Tara Narvaez MD [address] [place] [address] PCP - General Internal Medicine 11/13/21
== END 2024-08-09 14:08 | disposition home or self-care (01) ==
LOC: HO.HOS 13:21
PROVIDERS: PCP Internal Medicine
DX: M79.89 Other specified soft tissue disorders (principal); M25.642 Stiffness of left hand, not elsewhere classified
CPT/HCPCS: 99024

== ENCOUNTER → 2024-08-09 13:20 | Outpatient (BNVA) | payer MEDICAID, SELFPAY | PROVIDERS: PCP Internal Medicine | DX: M79.89 Other specified soft tissue disorders (principal); M25.642 Stiffness of left hand, not elsewhere classified | CPT/HCPCS: 99212 ==